=== PATIENT | female | born 1970 | race Caucasian/White ===

== ENCOUNTER 2021-03-29 22:38 | Emergency (ER) | payer OTHER ==
[~2021-03-29 22:38] MED LIST: AMBIEN10 MG PO; ATENOLOL25 MG PO; ZESTORETIC 20-1 EAC1 PO
== END 2021-03-30 02:23 | disposition home or self-care (01) ==
LOC: FER 22:38
DX: J06.9 Acute upper respiratory infection, unspecified (principal); I10 Essential (primary) hypertension; I25.10 Atherosclerotic heart disease of native coronary artery without angina pectoris; Z20.822 Contact with and (suspected) exposure to COVID-19
CPT/HCPCS: 71045; U0002